=== PATIENT | male | born 1935 | race Caucasian/White ===

== ENCOUNTER 2023-12-06 07:47 | Inpatient (IN) | payer MEDICARE, MEDICAID ==
[2023-12-06] VITALS (27 sets, daily range): BP systolic 83–141; BP diastolic 39–110; PULSE 32–95; RESP 10–18; TEMP 97.3–98.2; O2SAT 15–98
[~2023-12-06] VITALS: Ht 182.9 cm; Wt 81.6 kg
[2023-12-06] MEDS ORDERED: ROSU20TA73 PO (07:56)
[2023-12-06] MEDS ORDERED: GABA300C (07:56)
[2023-12-06] MEDS ORDERED: DUTA0.5C36 PO (07:56)
[2023-12-06] MEDS ORDERED: GABA300C PO (07:56)
[2023-12-06] MEDS ORDERED: APIX2.5T PO (07:56)
[2023-12-06] MEDS ORDERED: ISOS30TA84 PO (07:56)
[2023-12-06] MEDS ORDERED: LOSA50TA64 PO (07:56)
[2023-12-06] MEDS ORDERED: OMEP40CA21 PO (07:56)
[2023-12-06] MEDS ORDERED: AMI200T PO (07:56)
[2023-12-06] MEDS ORDERED: CARV6.253 PO (07:56)
[2023-12-06] MEDS ORDERED: LEVO75TA PO (07:56)
[2023-12-06] MEDS ORDERED: CELE-127 PO (07:56)
[2023-12-06] MEDS ORDERED: SERT-433 PO (07:56)
[2023-12-06 08:42] LABS: APTT 30 SECONDS (22-32); INR 1.1 INR; PROTHROMBIN TIME 11.2 SECONDS (9.0-12.0)
[2023-12-06] MEDS: morphine 10mg/ml inj. IV ONE (09:25)
[2023-12-06] MEDS: MIDAZolam 1mg/ml 10ml vial IV ONE (09:25)
[2023-12-06] MEDS: atropine 0.1mg/ml 10ml syringe IV ONE (09:25)
[2023-12-06] MEDS: normal saline 1000ml 1,000 ML IV SCH (09:26)
[2023-12-06] MEDS: atropine 0.1mg/ml 10ml syringe ONE (11:53)
[2023-12-06] MEDS: ondansetron/PF 4mg/2ml inj ONE (14:25)
[2023-12-06] MEDS: LORazepam 0.5 MG tablet PO ONE (17:36)
[2023-12-06] MEDS: diphenhydrAMINE 25mg capsule PO ONE (17:38)
[2023-12-06] MEDS: midodrine 5mg tablet PO SCH (17:38)
[2023-12-06] MEDS: amiodarone 150mg/dext, iso-os 100 ML IV ONE (17:39)
[2023-12-06] MEDS: gabapentin 300mg capsule PO SCH (20:00)
[2023-12-06] MEDS: losartan 50mg tablet PO SCH (20:00)
[2023-12-06] MEDS: ROSUVASTATIN CALCIUM 5 MG TABLET PO SCH (21:00)
[2023-12-06] MEDS: ondansetron/PF 4mg/2ml inj IV ONE (22:39)
[2023-12-07 02:00] VITALS: BP 155/74; PULSE 49; RESP 14; TEMP 97.8; O2SAT 97
[2023-12-07 06:00] VITALS: BP 181/84; PULSE 62; RESP 16; TEMP 97.8; O2SAT 93
[2023-12-07 07:39] LABS: BASOPHILS % (AUTO) 0.4 % (0-1); EOSINOPHILS % (AUTO) 0.1 % (0-6); HEMATOCRIT 40.1 % (42.0-52.0); HEMOGLOBIN 13.4 g/dl (14.0-17.9); MEAN CORPUSCULAR HEMOGLOBIN 32.2 PG (27.0-31.0); MEAN CORPUSCULAR HGB CONC 33.3 g/dL (33.0-36.5); MEAN CORPUSCULAR VOLUME 96.7 FL (78-98); MEAN PLATELET VOLUME 10.6 FL (7.4-10.4); MONOCYTES # (AUTO) 0.6 X10'3 (0-0.9); NEUTROPHILS # (AUTO) 6.4 X10'3 (1.8-7.7); NEUTROPHILS % (AUTO) 79.5 % (42-75); PLATELET COUNT 134 X10'3 (140-440); RED BLOOD COUNT 4.14 X10'6 (4.70-6.10); RED CELL DISTRIBUTION WIDTH 15.5 % (11.5-14.5); WHITE BLOOD COUNT 8.1 X10'3 (4.5-11.0)
[2023-12-07] MEDS: levoTHYROXINE 75mcg tablet PO SCH (08:00)
[2023-12-07 08:22] LABS: ALBUMIN 3.4 G/DL (3.4-5.0); ANION GAP 11 (8-16); BLOOD UREA NITROGEN 31 MG/DL (7-18); BUN/CREATININE RATIO 20.5 (10.0-20.0); CALCIUM 8.6 MG/DL (8.5-10.1); CHLORIDE 102 MMOL/L (99-107); CREATININE 1.51 MG/DL (0.60-1.10); GLUCOSE 125 MG/DL (70-104); POTASSIUM 4.8 MMOL/L (3.5-5.1); SODIUM 137 MMOL/L (135-145); TOTAL CARBON DIOXIDE 24.5 MMOL/L (24-32); eCRCL 37 ML/MIN; eGFR 44 ML/MIN
[2023-12-07] MEDS: ondansetron/PF 4mg/2ml inj IV PRN (10:44)
[2023-12-07 17:00] VITALS: BP 157/79; PULSE 50; RESP 21; TEMP 98.2; O2SAT 92
[2023-12-07] MEDS: sertraline 50mg tablet PO SCH (17:11)
[2023-12-07] MEDS: isosorbide mononitrate 30mg tab.SR.24H PO SCH (17:11)
[2023-12-07] MEDS: celeCOXIB 100mg capsule PO SCH (17:11)
[2023-12-07] MEDS: pantoprazole 40mg Tablet.DR PO SCH (17:12)
[2023-12-07] MEDS: dutasteride 0.5 MG capsule PO SCH (17:31)
[2023-12-07] MEDS: heparin, porcine 5000 units/ml vial SQ ONE (17:31)
[2023-12-07 18:00] VITALS: BP 129/73; PULSE 43; RESP 20; TEMP 97.9; O2SAT 93
[2023-12-07 19:00] VITALS: RESP 16; O2SAT 93
[2023-12-07 22:00] VITALS: BP 107/55; PULSE 47; RESP 18; TEMP 97.5; O2SAT 96
[2023-12-08 02:00] VITALS: BP 129/64; PULSE 47; RESP 15; TEMP 96.7; O2SAT 92
[2023-12-08 06:00] VITALS: BP 159/86; PULSE 52; RESP 17; TEMP 96.7; O2SAT 95
[2023-12-08 07:00] VITALS: RESP 16; O2SAT 93
[2023-12-08 07:33] LABS: BASOPHILS # (AUTO) 0.1 X10'3 (0-0.2); BASOPHILS % (AUTO) 0.8 % (0-1); EOSINOPHILS # (AUTO) 0.1 X10'3 (0-0.9); EOSINOPHILS % (AUTO) 1.6 % (0-6); HEMATOCRIT 40.8 % (42.0-52.0); HEMOGLOBIN 13.6 g/dl (14.0-17.9); LYMPHOCYTES # (AUTO) 1.7 X10'3 (1.1-4.8); LYMPHOCYTES % (AUTO) 22.2 % (21-51); MEAN CORPUSCULAR HEMOGLOBIN 32.2 PG (27.0-31.0); MEAN CORPUSCULAR HGB CONC 33.4 g/dL (33.0-36.5); MEAN CORPUSCULAR VOLUME 96.4 FL (78-98); MEAN PLATELET VOLUME 10.3 FL (7.4-10.4); MONOCYTES # (AUTO) 1.1 X10'3 (0-0.9); MONOCYTES % (AUTO) 13.9 % (2-12); NEUTROPHILS # (AUTO) 4.7 X10'3 (1.8-7.7); NEUTROPHILS % (AUTO) 61.5 % (42-75); PLATELET COUNT 118 X10'3 (140-440); RED BLOOD COUNT 4.23 X10'6 (4.70-6.10); RED CELL DISTRIBUTION WIDTH 15.5 % (11.5-14.5); WHITE BLOOD COUNT 7.6 X10'3 (4.5-11.0)
[2023-12-08 08:07] LABS: ALBUMIN 3.6 G/DL (3.4-5.0); ANION GAP 9 (8-16); BLOOD UREA NITROGEN 25 MG/DL (7-18); BUN/CREATININE RATIO 15.9 (10.0-20.0); CHLORIDE 104 MMOL/L (99-107); CREATININE 1.57 MG/DL (0.60-1.10); GLUCOSE 99 MG/DL (70-104); POTASSIUM 4.5 MMOL/L (3.5-5.1); SODIUM 138 MMOL/L (135-145); TOTAL CARBON DIOXIDE 24.6 MMOL/L (24-32); eCRCL 36 ML/MIN; eGFR 42 ML/MIN
[2023-12-08] MEDS ORDERED: fentaNYL/PF 50MCG/1 ML 2ML syringe ONE (09:51)
[2023-12-08] MEDS ORDERED: ceFAZolin 1000mg inj ONE ×2 (09:51→09:52)
[2023-12-08] MEDS ORDERED: midazolam 1 mg/ML 2ml injection ONE (09:51)
[2023-12-08] MEDS ORDERED: LIDOcaine 1% W/epiNEPHrine 1:100,000 20ml vial ONE (09:51)
[2023-12-08] MEDS ORDERED: iohexol 350 MG/ML 50ML vial IV ONE (10:07)
[2023-12-08] MEDS ORDERED: diphenhydrAMINE 50 mg/ml inj ONE (11:08)
[2023-12-08] MEDS ORDERED: hydrALAZINE 20mg/ml inj. IV ONE (11:16)
[2023-12-08 13:46] LABS: THYROID STIMULATING HORMONE 10.26 ulU/ml (0.34-4.50)
[2023-12-08 15:15] VITALS: BP 150/87; PULSE 60; RESP 17; TEMP 98.2; O2SAT 97
[2023-12-08 18:00] VITALS: BP 103/70; PULSE 64; RESP 14; TEMP 97.1; O2SAT 94
[2023-12-08] MEDS ORDERED: ibuprofen tablet 400 MG TABLET PO PRN (18:10)
[2023-12-08 19:00] VITALS: RESP 14; O2SAT 94
[2023-12-08] MEDS: acetaminophen 325mg tablet PO PRN (20:54)
[2023-12-09 02:00] VITALS: BP 135/79; PULSE 61; RESP 14; TEMP 97.3; O2SAT 99
[2023-12-09] MEDS: ketorolac trometh 15mg/ml vial 15 MG/ML ML IV PRN (04:04)
[2023-12-09 06:00] VITALS: BP 141/87; PULSE 61; RESP 16; TEMP 98.6; O2SAT 98
[2023-12-09 07:05] LABS: BASOPHILS # (AUTO) 0.1 X10'3 (0-0.2); BASOPHILS % (AUTO) 0.8 % (0-1); EOSINOPHILS # (AUTO) 0.1 X10'3 (0-0.9); EOSINOPHILS % (AUTO) 2.1 % (0-6); HEMATOCRIT 41.7 % (42.0-52.0); HEMOGLOBIN 14.1 g/dl (14.0-17.9); LYMPHOCYTES # (AUTO) 1.1 X10'3 (1.1-4.8); LYMPHOCYTES % (AUTO) 15.2 % (21-51); MEAN CORPUSCULAR HEMOGLOBIN 32.9 PG (27.0-31.0); MEAN CORPUSCULAR HGB CONC 33.9 g/dL (33.0-36.5); MEAN CORPUSCULAR VOLUME 97.2 FL (78-98); MONOCYTES # (AUTO) 1.1 X10'3 (0-0.9); MONOCYTES % (AUTO) 15.1 % (2-12); NEUTROPHILS # (AUTO) 4.7 X10'3 (1.8-7.7); NEUTROPHILS % (AUTO) 66.8 % (42-75); PLATELET COUNT 105 X10'3 (140-440); RED BLOOD COUNT 4.28 X10'6 (4.70-6.10); RED CELL DISTRIBUTION WIDTH 15.4 % (11.5-14.5)
[2023-12-09 07:18] LABS: ALBUMIN 2.9 G/DL (3.4-5.0); ANION GAP 7 (8-16); BLOOD UREA NITROGEN 22 MG/DL (7-18); BUN/CREATININE RATIO 13.3 (10.0-20.0); CALCIUM 8.7 MG/DL (8.5-10.1); CHLORIDE 104 MMOL/L (99-107); CREATININE 1.66 MG/DL (0.60-1.10); GLUCOSE 107 MG/DL (70-104); MAGNESIUM 1.9 MG/DL (1.5-2.4); POTASSIUM 4.3 MMOL/L (3.5-5.1); SODIUM 137 MMOL/L (135-145); TOTAL CARBON DIOXIDE 25.6 MMOL/L (24-32); eCRCL 34 ML/MIN; eGFR 39 ML/MIN
[2023-12-09] MEDS ORDERED: APIX2.5T PO (07:21)
[2023-12-09 11:00] VITALS: BP 100/62; PULSE 61; RESP 19; TEMP 97.8; O2SAT 99
[2023-12-09 15:55] LABS: FREE T4 (FREE THYROXINE) 1.21 NG/DL (0.73-1.40)
== END 2023-12-09 16:40 | disposition home or self-care (01) | DRG 243 ==
LOC: SSTAY O 07:47 → PAS IN 14:37 → OBSVTOIN 18:08 → PCU 3S 19:30
PROVIDERS: ADMIT Internal Medicine Cardiovascular Disease; ATTEND Internal Medicine Cardiovascular Disease
PROC: 0JH806Z Insertion of Pacemaker, Dual Chamber into Abdomen Subcutaneous Tissue and Fascia, Open Approach (ICD-10-PCS; principal; 2023-12-08)
PROC: 02H63JZ Insertion of Pacemaker Lead into Right Atrium, Percutaneous Approach (ICD-10-PCS; 2023-12-08)
PROC: 02HK3JZ Insertion of Pacemaker Lead into Right Ventricle, Percutaneous Approach (ICD-10-PCS; 2023-12-08)
PROC: B5171ZZ Fluoroscopy of Left Subclavian Vein using Low Osmolar Contrast (ICD-10-PCS; 2023-12-08)
DX: I49.5 Sick sinus syndrome (principal); J98.11 Atelectasis; I48.0 Paroxysmal atrial fibrillation; E03.9 Hypothyroidism, unspecified; I25.10 Atherosclerotic heart disease of native coronary artery without angina pectoris; K21.9 Gastro-esophageal reflux disease without esophagitis; I44.0 Atrioventricular block, first degree; Z66 Do not resuscitate; N40.0 Benign prostatic hyperplasia without lower urinary tract symptoms; I12.9 Hypertensive chronic kidney disease with stage 1 through stage 4 chronic kidney disease, or unspecified chronic kidney disease; N18.30 Chronic kidney disease, stage 3 unspecified; I95.9 Hypotension, unspecified; Z95.818 Presence of other cardiac implants and grafts; Z79.01 Long term (current) use of anticoagulants; Z79.899 Other long term (current) drug therapy
CPT/HCPCS: 33208; 36415; 71045; 80048; 83735; 84439; 84443; 85025; 85610; 85730; 92960; 93005; 97110; 97161; 97530; 99152; 99153; A4615; A4620; A6222; A6449; C1785; C1898; G0378; J0360; J0461; J0690; J1200; J1644; J1885; J2250; J2274; J2405; J3010; J3490; J7030; Q9967